=== PATIENT | male | born 2000 | race African-American/Black ===

== ENCOUNTER 2020-11-02 16:22 | Emergency (ER) | payer OTHER, SELFPAY ==
--- OUTSIDE RECORDS SUMMARY | 2020-11-02 16:25 | XMS REPORT | Continuity of Care Document ---
:2000 Author Organization [facility] t Address [address] [place] [address] Care Team Providers Name Role Phone Unavailable Unavailable Unavailable Problems This patient has no known problems. Allergies, Adverse Reactions, Alerts This patient has no known allergies or adverse reactions. Medications This patient has no known medications. Procedures This patient has no known procedures. Results Test Description Test Time Test Comments Results Result Comments Source Lipid Panel 2019-08-26 07:23:05 Test Item Value Reference Range Interpretation Comme nts Cholesterol Total (test code = 152 mg/dL 0-200 RISK OF HEART DISEASEPublished by Cholesterol Total) [place] [employer] Analyte Optimal Border line Increased RiskCHOL <200 200-239 >240TRIG <150 150-199 >2 00HDL Male >60 <40HDL Female >60 <50LDL <100 130-159 >160LDL Near optimal is 100-129 Triglycerides (test code = 97 mg/dL 9-200 Triglycerides) HDL (test code = HDL) 46 mg/dL 40-60 LDL (test code = LDL) 86 mg/dL 0-130 The eq uation being used in this calculation is LDL = (Chol - HDL) - (Trig / 5) VLDL (test code = VLDL) 19 mg/dL 5-40 The equation being used in this calculation is VLDL = Trig / 5 Chol/HDL (test code = Chol/HDL) 3.3 ratio 0.0-5.0 LDL/HDL Ratio (test code = 2 N T he equation being used in this LDL/HDL Ratio) calculation i s LDL/HDL Ratio=LDL Calc/HDL Chol Thyroid Stimulating [id number] 07:23:05 Test Item Value Reference Range Interpretation Comments TSH (test code = TSH) 2.950 mIU/mL 0.270-4.200 RPR [id number] 18:22:44 Test Item Value Reference Range Interpretation Comments RPR Qual (test code = RPR Qual) Non-Reactive Non-Reactive Reactive Control (test code = Reactive Reactive Control) Weak Reactive Control (test Weak Reactive code = Weak Reactive Control) Non-Reactive Control (test code Non-Reactive = Non-Reactive Control) Lot # (test code = Lot #) [id number] Expiration Dt (test code = 10.31.20 N Expiration Dt) Urine Drug [id number] 16:52:45 Test Item Value Reference Range Interpretation Comments Amphetamine Screen Ur Negative Negative (test code = Amphetamine Screen Ur) Barbiturate Screen Ur Negative Negative (test code = Barbiturate Screen Ur) Benzodiazepines Ur (test Negative Negative code = Benzodiazepines Ur) Cocaine Screen Ur (test Negative Negative code = Cocaine Screen Ur) U Methadone Scr (test Negative Negative code = U Methadone Scr) Opiate Screen Ur (test Negative Negative code = Opiate Screen Ur) U PCP Scrn (test code = Negative Negative U PCP Scrn) Cannabinoid Screen Ur Negative Negative (test code = Cannabinoid Screen Ur) U TCA (test code = U Negative Negative The res ults of all TCA) drug screen alan ts are only preliminar y. Clinical consideration a nd professional ju dgment should be appli ed to any drug of abu se test result, particularly wh en preliminary pos itive results are obt ained. Please order a separate confir matory test if desired . Urinalysis with Culture, if [id number] 16:27:18 Test Item Value Reference Range Interpretation Comments UA Color (test code = YELLO Yellow UA Color) UA Appear (test code = CLEAR Clear UA Appear) UA pH (test code = UA 7 N pH) UA Spec Grav (test 1.010 1.001-1.035 code = UA Spec Grav) UA Glucose (test code NEG Negative = UA Glucose) UA Bili (test code = NEG Negative UA Bili) UA Ketones (test code NEG Negative = UA Ketones) UA Blood (test code = NEG Negative UA Blood) UA Protein (test code NEG Negative = UA Protein) UA Urobilinogen (test 0.2 mg/dL N code = UA Urobilinogen) UA Nitrite (test code NEG Negative = UA Nitrite) UA Leuk Est (test code NEG Negative = UA Leuk Est) UA Micro Ind? (test Not Indicated Not Indicated Result created by code = UA Micro Ind?) rule [id number] _IN D Comprehensive Metabolic [id number] 16:13:02 Test Item Value Reference Range Interpretation Comments Sodium Level (test code = Sodium 139.0 mmol/L 135.0-145.0 Level) Potassium Level (test code = 4.6 mmol/L 3.5-5.1 Potassium Level) Chloride Level (test code = 99 mmol/L 98-105 Chloride Level) CO2 (test code = CO2) 28 mmol/L 22-29 Anion Gap (test code = Anion 12 mmol/L 7-16 Gap) BUN (test code = BUN) 10.20 mg/dL 6.00-20.00 Creatinine Level (test code = 1.10 mg/dL 0.70-1.20 Creatinine Level) BUN/Creat Ratio (test code = 9 N BUN/Creat Ratio) Glucose Level (test code = 87 mg/dL 70-115 Glucose Level) Calcium Level (test code = 10.7 mg/dL 8.3-10.5 H Calcium Level) Alk Phos (test code = Alk Phos) 85 U/L 40-129 Bilirubin Total (test code = 0.8 mg/dL 0.1-0.9 Bilirubin Total) Albumin Level (test code = 5.4 g/dL 3.5-5.2 H Albumin Level) Protein Total (test code = 8.6 g/dL 6.4-8.3 H Protein Total) ALT (test code = ALT) 37 U/L 1-41 AST (test code = AST) 22 U/L 1-40 Globulin (test code = Globulin) 3.2 g/dL 2.9-3.1 H A/G Ratio (test code = A/G 1.7 ratio N Ratio) Alcohol [id number] 16:13:02 Test Item Value Reference Range Interpretation Comments Ethanol Level (test <0.00 g/dL 0.00-0.01 Intoxica eric 0.080 g/dL code = Ethanol or more Level) Ethanol Inst (test <0 N code = Ethanol Inst) Comprehensive Metabolic [id number] 16:13:02 Test Item Value Reference Range Interpretation Comments Sodium Level (test 139.0 mmol/L 135.0-145.0 code = Sodium Level) Potassium Level 4.6 mmol/L 3.5-5.1 (test code = Potassium Level) Chloride Level (test 99 mmol/L 98-105 code = Chloride Level) CO2 (test code = 28 mmol/L 22-29 CO2) Anion Gap (test code 12 mmol/L 7-16 = Anion Gap) BUN (test code = 10.20 mg/dL 6.00-20.00 BUN) Creatinine Level 1.10 mg/dL 0.70-1.20 (test code = Creatinine Level) BUN/Creat Ratio 9 N (test code = BUN/Creat Ratio) Glucose Level (test 87 mg/dL 70-115 code = Glucose Level) Calcium Level (test 10.7 mg/dL 8.3-10.5 H code = Calcium Level) Alk Phos (test code 85 U/L 40-129 = Alk Phos) Bilirubin Total 0.8 mg/dL 0.1-0.9 (test code = Bilirubin Total) Albumin Level (test 5.4 g/dL 3.5-5.2 H code = Albumin Level) Protein Total (test 8.6 g/dL 6.4-8.3 H code = Protein Total) ALT (test code = 37 U/L 1-41 ALT) AST (test code = 22 U/L 1-40 AST) Globulin (test code 3.2 g/dL 2.9-3.1 H = Globulin) A/G Ratio (test code 1.7 ratio N = A/G Ratio) eGFR AA (test code = >60 N eGFR (e stimated eGFR AA) mL/min/1.73 m2 Glomerular Filtration Rate ) is an estimated va lue, calculated from the patient's serum creatinine usin g the MDRD equation. It is NOT the patient 's actual GFR. The eGFR provides a more clinically usef ul measure of kidn ey disease than se rum creatinine alone.This calculation mima es sex and race in to account, if the information is provided. If th e race is not provided, and t he patient is -Latoya n, multiply by 1.2 12. If sex is not provided, and t he patient is fema le, multiply by 0.7 42. Results for pat ients <18 years of ag e have not been validated by th e MDRD study and should be interpreted wit h caution. eGFR R esult Interpretation: eGFR > or = 60 is in the Normal RangeeGF R < 60 may mean kid alma rosa diseaseeGFR < 1 5 may mean kidney failure Rang es recommended by the National Kidney Foundation, http://nkdep.ni h.gov Comprehensive Metabolic [id number] 16:13:02 Test Item Value Reference Range Interpretation Comments Sodium Level (test 139.0 mmol/L 135.0-145.0 code = Sodium Level) Potassium Level 4.6 mmol/L 3.5-5.1 (test code = Potassium Level) Chloride Level (test 99 mmol/L 98-105 code = Chloride Level) CO2 (test code = 28 mmol/L 22-29 CO2) Anion Gap (test code 12 mmol/L 7-16 = Anion Gap) BUN (test code = 10.20 mg/dL 6.00-20.00 BUN) Creatinine Level 1.10 mg/dL 0.70-1.20 (test code = Creatinine Level) BUN/Creat Ratio 9 N (test code = BUN/Creat Ratio) Glucose Level (test 87 mg/dL 70-115 code = Glucose Level) Calcium Level (test 10.7 mg/dL 8.3-10.5 H code = Calcium Level) Alk Phos (test code 85 U/L 40-129 = Alk Phos) Bilirubin Total 0.8 mg/dL 0.1-0.9 (test code = Bilirubin Total) Albumin Level (test 5.4 g/dL 3.5-5.2 H code = Albumin Level) Protein Total (test 8.6 g/dL 6.4-8.3 H code = Protein Total) ALT (test code = 37 U/L 1-41 ALT) AST (test code = 22 U/L 1-40 AST) Globulin (test code 3.2 g/dL 2.9-3.1 H = Globulin) A/G Ratio (test code 1.7 ratio N = A/G Ratio) eGFR AA (test code = >60 N eGFR (e stimated eGFR AA) mL/min/1.73 m2 Glomerular Filtration Rate ) is an estimated va lue, calculated from the patient's serum creatinine usin g the MDRD equation. It is NOT the patient 's actual GFR. The eGFR provides a more clinically usef ul measure of kidn ey disease than se rum creatinine alone.This calculation mima es sex and race in to account, if the information is provided. If th e race is not provided, and t he patient is -Latoya n, multiply by 1.2 12. If sex is not provided, and t he patient is fema le, multiply by 0.7 42. Results for pat ients <18 years of ag e have not been validated by [facility] MDRD study and should be interpreted wit h caution. eGFR R esult Interpretation: eGFR > or = 60 is in the Normal RangeeGF R < 60 may mean kid alma rosa diseaseeGFR < 1 5 may mean kidney failure Rang es recommended by the National Kidney Foundation, http://nkdep.ni h.gov eGFR Non-AA (test >60.00 N eGFR (shirley mated code = eGFR Non-AA) mL/min/1.73 m2 Glomer ular Filtration Rate ) is an estimated va lue, calculated from the patient's serum creatinine usin g the MDRD equation. It is NOT the patient 's actual GFR. The eGFR provides a more clinically usef ul measure of kidn ey disease than se rum creatinine alone.This calculation mima es sex and race in to account, if the information is provided. If th e race is not provided, and t he patient is -Latoya n, multiply by 1.2 12. If sex is not provided, and t he patient is fema le, multiply by 0.7 42. Results for pat ients <18 years of ag e have not been validated by [facility] MDRD study and should be interpreted wit h caution. eGFR R esult Interpretation: eGFR > or = 60 is in the Normal RangeeGF R < 60 may mean kid alma rosa diseaseeGFR < 1 5 may mean kidney failure Rang es recommended by the National Kidney Foundation, http://nkdep.ni h.gov Complete Blood Count with [id number] 15:52:34 Test Item Value Reference Range Interpretation Comments WBC (test code = WBC) 9.9 x10 4.4-10.5 RBC (test code = RBC) 6.07 x10 4.10-5.70 H Hgb (test code = Hgb) 17.4 g/dL 13.4-17.4 MCV (test code = MCV) 87.00 fL 80.00-100.00 Hct (test code = Hct) 52.8 % 38.7-52.0 H MCHC (test code = 33.00 g/dL 32.00-37.50 MCHC) RDW CV (test code = 14.6 % 11.5-14.5 H RDW CV) MCH (test code = MCH) 28.7 pg 27.0-32.5 Platelets (test code = 269.0 x10 140.0-440.0 Platelets) MPV (test code = MPV) 10.4 fL N Slide Review (test Auto Auto Result cr eated by code = Slide Review) GL_SJM_ SLIDE_REV_AUTO nRBC (test code = 0 N nRBC) NRBC Abs (test code = 0.00 x10 N NRBC Abs) IPF (test code = IPF) 0 % N Automated [id number] 15:52:34 Test Item Value Reference Range Interpretation Comments Neutro Auto (test code = Neutro 79.0 % 36.0-70.0 H Auto) Lymph Auto (test code = Lymph Auto) 15.8 % 12.0-44.0 Spink Auto (test code = Spink Auto) 4.6 % 0.0-11.0 Eos, Auto (test code = Eos, Auto) 0.2 % 0.0-7.0 Basophil Auto (test code = Basophil 0.1 % 0.0-2.0 Auto) Neutro Absolute (test code = Neutro 7.8 x10 1.6-7.4 H Absolute) Lymph Absolute (test code = Lymph 1.56 x10 .50-4.60 Absolute) Spink Absolute (test code = Spink .45 x10 .00-1.20 Absolute) Eos Absolute (test code = Eos 0.02 x10 0.00-0.74 Absolute) Baso Absolute (test code = Baso 0.01 x10 0.00-0.21 Absolute) IG [id number] 15:52:34 Test Item Value Reference Range Interpretation Comments IG (test code = IG) 0.3 % 0.0-5.0 IG Abs (test code = IG Abs) 0 x10 N
--- NOTE | 2020-11-02 19:59 | ER ---
Nurse's Notes [facility] Name: Kishore Oronoco Age: 20 yrs Sex: Male : 2000 Arrival Date: 11/02/2020 Time: 16:25 Bed 6 Private MD: Diagnosis: Coronavirus infection, unspecified Presentation: 11/02 17:50 Chief complaint: Patient states: COVID + since last Friday, is having a hard time iw breathing since this morning, also has a cough, no chest pain. Coronavirus screen: Client reports previous positive COVID test result. Ebola Screen: Patient negative for fever greater than or equal to 101.5 degrees Fahrenheit, and additional compatible Ebola Virus Disease symptoms Patient denies exposure to infectious person. Patient denies travel to an Ebola-affected area in the 21 days before illness onset. No symptoms or risks identified at this time. Initial Sepsis Screen: Does the patient meet any 2 criteria? No. Patient's initial sepsis screen is negative. Does the patient have a suspected source of infection? No. Patient's initial sepsis screen is negative. Risk Assessment: Do you want to hurt yourself or someone else? Patient reports no desire to harm self or others. Onset of symptoms was November 02, 2020. 17:50 Method Of Arrival: Ambulatory iw 17:50 Acuity: RUDY 4 iw Historical: - Allergies: 17:52 No Known Allergies; iw - Home Meds: 17:52 None [Active]; iw - PMHx: 17:52 None; iw - PSHx: 17:52 None; iw - Immunization history:: Adult Immunizations not up to date. - Social history:: Smoking status: Patient denies any tobacco usage or history of. Screenin:47 Abuse screen: Denies threats or abuse. Nutritional screening: No deficits noted. ea Tuberculosis screening: No symptoms or risk factors identified. Fall Risk None identified. Assessment: 19:56 General: Appears in no apparent distress. uncomfortable, Behavior is calm, cooperative, rr5 appropriate for age. Pain: Denies pain. Neuro: Level of Consciousness is awake, alert, obeys commands, Oriented to person, place, time. Cardiovascular: Capillary refill < 3 seconds Patient's skin is warm and dry. Respiratory: Reports shortness of breath Airway is patent Respiratory effort is even, unlabored, Respiratory pattern is regular, symmetrical. GI: No signs and/or symptoms were reported involving the gastrointestinal system. Derm: Skin is intact, is healthy with good turgor, Skin temperature is warm. Musculoskeletal: Capillary refill < 3 seconds. 20:03 Reassessment: Patient and/or family updated on plan of care and expected duration. Pain ea level reassessed. Patient is alert, oriented x 3, equal unlabored respirations, skin warm/dry/pink. Discharge instruction given to patient verbalized the understanding of instruction. Pt left ED ambulatory tolerating well. Vital Signs: 17:50 BP 116 / 79; Pulse 89; Resp 18; Temp 97.9; Pulse Ox 98% on R/A; Weight 107.5 kg; Height iw 5 ft. 9 in. (175.26 cm); 19:56 BP 117 / 82; Pulse 85; Resp 19; Pulse Ox 96% ; rr5 17:50 Body Mass Index 35.00 (107.50 kg, 175.26 cm) iw ED Course: 16:25 Patient arrived in ED. as 17:51 Triage completed. iw 17:52 Arm band placed on. iw 19:41 Mickey Mcallister, RN is Primary Nurse. rr5 19:47 Patient has correct armband on for positive identification. Bed in low position. Call ea light in reach. 19:49 Yannick Estrada PA is PHCP. [facility] 19:49 Radha Fox MD is Attending Physician. [facility] 19:59 No provider procedures requiring assistance completed. Patient did not have IV access ea during this emergency room visit. Administered Medications: No medications were administered Outcome: 19:58 Discharge ordered by . [facility] 20:04 Discharged to home ambulatory. ea 20:04 Condition: stable 20:04 Discharge instructions given to patient, Instructed on discharge instructions, follow up and referral plans. medication usage, Demonstrated understanding of instructions, follow-up care, medications, Prescriptions given X 2. 20:04 Patient left the ED. ea Signatures: Yannick Estrada PA PA jmm Martinez, Amelia as Williams, Irene RN RN Anabel Nur RN RN ea Roque, Raymond, RN RN rr5 Corrections: (The following items were deleted from the chart) 17:52 17:50 Chief complaint: Patient states: COVID + since last Friday, is having a hard iw time breathing iw
--- NOTE | 2020-11-02 19:59 | EDPHYS ---
Physician Documentation [facility] Name: Kishore Leavenworth Age: 20 yrs Sex: Male : 2000 Arrival Date: 11/02/2020 Time: 16:25 Bed 6 Private MD: ED Physician Radha Fox HPI: 11/02 19:55 This 20 yrs old Black Male presents to ER via Ambulatory with complaints of Shortness jmm Of Breath - covid+. 19:55 The patient has shortness of breath at rest. Onset: The symptoms/episode began/occurred jmm gradually, 5 day(s) ago. Duration: The symptoms are continuous, and are steadily getting worse. The patient's shortness of breath is aggravated by coughing, is alleviated by nothing. This is a 20 year old male with no chronic medical conditions that presents to the ED with complaints of cough, shortness of breath worsening this morning. Diagnosed with covid 19 this past Friday. . Historical: - Allergies: 17:52 No Known Allergies; iw - Home Meds: 17:52 None [Active]; iw - PMHx: 17:52 None; iw - PSHx: 17:52 None; iw - Immunization history:: Adult Immunizations not up to date. - Social history:: Smoking status: Patient denies any tobacco usage or history of. ROS: 19:55 Cardiovascular: Negative for chest pain, palpitations, and edema, Respiratory: Negative jmm for shortness of breath, cough, wheezing, and pleuritic chest pain. 19:55 Constitutional: Positive for fever. 19:55 Respiratory: Positive for cough. 19:55 All other systems are negative. Exam: 19:55 Constitutional: This is a well developed, well nourished patient who is awake, alert, jmm and in no acute distress. Head/Face: atraumatic. Eyes: EOMI, no conjunctival erythema appreciated ENT: Moist Mucus Membranes Neck: Trachea midline, Supple Chest/axilla: Normal chest wall appearance and motion. Cardiovascular: Regular rate and rhythm. No edema appreciated Respiratory: Normal respirations, no respiratory distress appreciated Abdomen/GI: Non distended, soft Back: Normal ROM Skin: General appearance color normal MS/ Extremity: Moves all extremities, no obvious deformities appreciated, no edema noted to the lower extremities Neuro: Awake and alert, normal gait Psych: Behavior is normal, Mood is normal, Patient is cooperative and pleasant Vital Signs: 17:50 BP 116 / 79; Pulse 89; Resp 18; Temp 97.9; Pulse Ox 98% on R/A; Weight 107.5 kg; Height iw 5 ft. 9 in. (175.26 cm); 19:56 BP 117 / 82; Pulse 85; Resp 19; Pulse Ox 96% ; rr5 17:50 Body Mass Index 35.00 (107.50 kg, 175.26 cm) iw MDM: 19:49 Patient medically screened. [facility] 19:57 Data reviewed: vital signs, nurses notes. Counseling: I had a detailed discussion with daphne the patient and/or guardian regarding: the historical points, exam findings, and any diagnostic results supporting the discharge/admit diagnosis, the need for outpatient follow up, to return to the emergency department if symptoms worsen or persist or if there are any questions or concerns that arise at home. ED course: Patient is alert and non toxic in appearance in the ED. No signs of resp distress. patient is advised to follow up with pcp and otherwise given strict return precautions. patient understood and agrees with the plan of care. . 11/02 17:53 Order name: CXR XRAY iw Administered Medications: No medications were administered Disposition: 20:16 Co-signature as Attending Physician, Radha Fox MD. ma2 Disposition: 11/02/20 19:58 Discharged to Home. Impression: Coronavirus infection, unspecified. - Condition is Stable. - Discharge Instructions: COVID-19. - Prescriptions for Prednisone 20 mg Oral Tablet - take 3 tablet by ORAL route once daily for 5 days; 15 tablet. Albuterol Sulfate 90 mcg/actuation - inhale 1-2 puff by INHALATION route every 4-6 hours; 1 Inhaler. - Medication Reconciliation Form, Thank You Letter, Antibiotic Education, Prescription Opioid Use form. - Follow up: Private Physician; When: 2 - 3 days; Reason: Recheck today's complaints, Continuance of care, Re-evaluation by your physician. - Notes: Please take 10,000 IU of vitamin D a day 1000 mg of NAC (N-Acetyle Cysteine) three times a day 200 mg of Vitamin C daily Signatures: Dispatcher [employer] EDYannick Recio PA PA jmm Williams, Irene, RN Anabel Funk RN Radha Campos ea, MD MD ma2 Corrections: (The following items were deleted from the chart) 20:04 19:58 11/02/2020 19:58 Discharged to Home. Impression: Coronavirus infection, ea unspecified. Condition is Stable. Forms are Medication Reconciliation Form, Thank You Letter, Antibiotic Education, Prescription Opioid Use. Follow up: Private Physician; When: 2 - 3 days; Reason: Recheck today's complaints, Continuance of care, Re-evaluation by your physician. daphne
--- NOTE | 2020-11-02 20:17 | RAD REPORT ---
EXAM DESCRIPTION: RAD - Chest Single View - 11/02/2020 7:50 pm CLINICAL HISTORY: Cough;SOB Chest pain. COMPARISON: Chest Pa And Lat (2 Views) dated 03/11/2016 FINDINGS: Portable technique limits examination quality. The lungs are grossly clear. The heart is normal in size. No displaced fractures. IMPRESSION: No acute intrathoracic process suspected.
[2020-11-03 08:34] VITALS: BP 117/82; O2SAT 96
== END 2020-11-02 20:04 | disposition home or self-care (01) ==
LOC: ER 16:22
DX: U07.1 COVID-19 (principal)
CPT/HCPCS: 71045; 99282